=== PATIENT | male | born 1985 | race Caucasian/White ===

== ENCOUNTER 2017-04-28 11:48 | Emergency (ER) | payer OTHER ==
[~2017-04-28] VITALS: Ht 188 cm; Wt 70.0 kg
[~2017-04-28 11:48] MED LIST: DICL50TA PO; ROBA750T PO
[2017-04-28 11:52] VITALS: BP 128/93; PULSE 158; RESP 22; TEMP 97.4; O2SAT 100
[2017-04-28] MEDS ORDERED: LORazepam 2 MG/ML VIAL IV PUSH ONE (12:15)
[2017-04-28] MEDS ORDERED: SODIUM CHLORIDE 0.9% FLUSH 10 ML FLUSH IVF PRN (12:15)
[2017-04-28] MEDS ORDERED: SODIUM CHLOR 0.9% 1000 ML INJ 1,000 ML IV SCH (12:16)
[2017-04-28] MEDS ORDERED: SODIUM CHLORIDE 0.9% FLUSH 10 ML FLUSH IV FLUSH PRN (12:30)
[2017-04-28] MEDS ORDERED: FAMOTIDINE 20 MG/2 ML VIAL IV PUSH ONE (12:30)
[2017-04-28] MEDS ORDERED: LIDOCAINE VISCOUS 2% SOLN 15 ML UDC PO ONE (12:30)
[2017-04-28] MEDS ORDERED: ALUMINUM/MAGNESIUM/SIMETH 30 ML CUP PO ONE (12:30)
[2017-04-28] MEDS ORDERED: ONDANSETRON HCL 4 MG/2 ML VIAL IVP ONE (12:30)
[2017-04-28 12:35] LABS: AUTOMATED NEUTROPHIL # 5.7 TH/MM3 (1.8-7.7); BASOPHIL # 0.1 TH/MM3 (0-0.2); BASOPHIL % 0.8 % (0.0-2.0); EOSINOPHIL # 0.1 TH/MM3 (0-0.4); EOSINOPHIL % 0.7 % (0.0-4.0); HEMATOCRIT 51.1 % (39.0-51.0); HEMOGLOBIN 18.2 GM/DL (13.0-17.0); LYMPH % 24.6 % (9.0-44.0); MEAN CELL VOLUME 91.3 FL (80.0-100.0); MEAN CORPUSCULAR HEMOGLOBIN 32.6 PG (27.0-34.0); MEAN CORPUSCULAR HGB CONC 35.6 % (32.0-36.0); MEAN PLATELET VOLUME 8.3 FL (7.0-11.0); MONO % 5.5 % (0.0-8.0); MONOCYTE # 0.5 TH/MM3 (0-0.9); NEUT % 68.4 % (16.0-70.0); PLATELET COUNT 267 TH/MM3 (150-450); RED CELL DISTRIBUTION WIDTH 12.7 % (11.6-17.2); WHITE BLOOD COUNT 8.3 TH/MM3 (4.0-11.0)
[2017-04-28 12:54] LABS: ALBUMIN 4.7 GM/DL (3.4-5.0); ALT (GPT) 29 U/L (12-78); AST (GOT) 15 U/L (15-37); BICARBONATE 29.5 MEQ/L (21.0-32.0); BLOOD UREA NITROGEN 15 MG/DL (7-18); CALCIUM 9.3 MG/DL (8.5-10.1); CHLORIDE 104 MEQ/L (98-107); CREATININE 1.03 MG/DL (0.60-1.30); GLOMERULAR FILTRATION RATE 83 ML/MIN (>89); GLUCOSE,RANDOM 96 MG/DL (74-106); SODIUM (NA) 140 MEQ/L (136-145)
[2017-04-28 13:04] LABS: ALKALINE PHOSPHATASE 73 U/L (45-117); TOTAL BILIRUBIN ADULT 0.9 MG/DL (0.2-1.0); TOTAL PROTEIN 8.2 GM/DL (6.4-8.2)
[2017-04-28 13:27] LABS: INTERNATIONAL NORMALIZED RATIO 1.2 RATIO; PROTHROMBIN TIME - PATIENT 11.8 SEC (9.8-11.6)
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
[2017-04-28 14:29] LABS: BILIRUBIN, URINE NEG (NEG); BLOOD, URINE NEG (NEG); GLUCOSE,URINE NEG (NEG); KETONE, URINE 10 mg/dL (NEG); MUCUS URINE FEW /lpf (OCC); NITRITE,URINE NEG (NEG); PH, URINE 6.5 (5.0-8.5); URINE COLOR YELLOW (YELLW/STRAW); URINE LEUKOCYTE ESTERASE NEG (NEG)
[2017-04-28] MEDS ORDERED: OMEP40CA2 PO (16:34)
[2017-04-28] MEDS ORDERED: ZOFR4TAB PO (16:34)
[2017-04-28] MEDS ORDERED: VIST25CA PO (16:34)
--- NOTE | 2017-04-28 16:52 | PD ---
Data Data Last Documented VS Vital Signs Date Time Temp Pulse Resp B/P (MAP) Pulse Ox O2 Delivery O2 Flow Rate FiO2 04/28/17 11:52 97.4 158 22 128/93 (105) 100 Orders Orders Complete Blood Count With Diff (04/28/17 12:08) Comprehensive Metabolic Panel (04/28/17 12:08) Thyroid Stimulating Hormone (04/28/17 12:08) Urinalysis - C+S If Indicated (04/28/17 12:08) Electrocardiogram (04/28/17 12:08) Oximetry (04/28/17 12:08) Iv Access Insert/Monitor (04/28/17 12:08) Ecg Monitoring (04/28/17 12:08) Sodium Chloride 0.9% Flush (Ns Flush) (04/28/17 12:15) Lorazepam Inj (Ativan Inj) (04/28/17 12:15) Drug Screen, Random Urine (04/28/17 12:08) Alcohol (Ethanol) (04/28/17 12:08) Lipase (04/28/17 12:16) Lactic Acid (04/28/17 12:16) Prothrombin Time / Inr (Pt) (04/28/17 12:16) Act Partial Throm Time (Ptt) (04/28/17 12:16) NPO (04/28/17 12:16) Ondansetron Inj (Zofran Inj) (04/28/17 12:30) Sodium Chlor 0.9% 1000 Ml Inj (Ns 1000 M (04/28/17 12:16) Sodium Chloride 0.9% Flush (Ns Flush) (04/28/17 12:30) Famotidine Inj (Pepcid Inj) (04/28/17 12:30) Al-Mag Hy-Si 40-40-4 Mg/Ml Liq (Mag-Al P (04/28/17 12:30) Lidocaine 2% Viscous (Xylocaine 2% Visco (04/28/17 12:30) Holter Monitor Recording (04/28/17 ) Labs Laboratory Tests Test 04/28/17 12:20 04/28/17 13:04 04/28/17 13:57 White Blood Count 8.3 TH/MM3 Red Blood Count 5.60 MIL/MM3 Hemoglobin 18.2 GM/DL Hematocrit 51.1 % Mean Corpuscular Volume 91.3 FL Mean Corpuscular Hemoglobin 32.6 PG Mean Corpuscular Hemoglobin Concent 35.6 % Red Cell Distribution Width 12.7 % Platelet Count 267 TH/MM3 Mean Platelet Volume 8.3 FL Neutrophils (%) (Auto) 68.4 % Lymphocytes (%) (Auto) 24.6 % Monocytes (%) (Auto) 5.5 % Eosinophils (%) (Auto) 0.7 % Basophils (%) (Auto) 0.8 % Neutrophils # (Auto) 5.7 TH/MM3 Lymphocytes # (Auto) 2.0 TH/MM3 Monocytes # (Auto) 0.5 TH/MM3 Eosinophils # (Auto) 0.1 TH/MM3 Basophils # (Auto) 0.1 TH/MM3 CBC Comment AUTO DIFF Differential Comment AUTO DIFF CONFIRMED Platelet Estimate NORMAL Platelet Morphology Comment NORMAL Blood Urea Nitrogen 15 MG/DL Creatinine 1.03 MG/DL Random Glucose 96 MG/DL Total Protein 8.2 GM/DL Albumin 4.7 GM/DL Calcium Level 9.3 MG/DL Alkaline Phosphatase 73 U/L Aspartate Amino Transf (AST/SGOT) 15 U/L Alanine Aminotransferase (ALT/SGPT) 29 U/L Total Bilirubin 0.9 MG/DL Sodium Level 140 MEQ/L Potassium Level 3.8 MEQ/L Chloride Level 104 MEQ/L Carbon Dioxide Level 29.5 MEQ/L Anion Gap 7 MEQ/L Estimat Glomerular Filtration Rate 83 ML/MIN Thyroid Stimulating Hormone 3rd Gen 0.672 uIU/ML Ethyl Alcohol Level LESS THAN 3 MG/DL Prothrombin Time 11.8 SEC Prothromb Time International Ratio 1.2 RATIO Activated Partial Thromboplast Time 26.6 SEC Lactic Acid Level 1.3 mmol/L Lipase 83 U/L Urine Color YELLOW Urine Turbidity CLEAR Urine pH 6.5 Urine Specific [place] 1.025 Urine Protein TRACE mg/dL Urine Glucose (UA) NEG mg/dL Urine Ketones 10 mg/dL Urine Occult Blood NEG Urine Nitrite NEG Urine Bilirubin NEG Urine Urobilinogen LESS THAN 2.0 MG/DL Urine Leukocyte Esterase NEG Urine RBC LESS THAN 1 /hpf Urine WBC 5 /hpf Urine Mucus FEW /lpf Microscopic Urinalysis Comment CULT NOT INDICATED Urine Opiates Screen NEG Urine Barbiturates Screen NEG Urine Amphetamines Screen NEG Urine Benzodiazepines Screen NEG Urine Cocaine Screen NEG Urine Cannabinoids Screen POS MDM Supervised Visit with JANEEN: Yes Narrative Course The history, exam, and medical decision-making in the associated midlevel provider note were completed with my assistance. I reviewed and agree with the findings presented. I attest that I had a [id number] encounter with the patient on the same day, and personally performed and documented my assessment and findings in the medical record. *My assessment and Findings: This is a 32-year-old male who presents to the emergency department with intermittent palpitations that have been going on for months. Here in the emergency department he had a heart rate of 150 out in triage. On his EKG can see a discrete change in heart rate from 100-60 which I think reflects an SVT. He is otherwise very well-appearing. Labs are all reassuring. Patient was placed on a Holter monitor and asked to follow-up with an outpatient social science analyst. Given this is a subacute problem I think it is reasonable for him to be assessed on an outpatient basis. Patient seems very reliable. He was discharged home. Diagnosis Primary Impression: Intermittent palpitations Additional Impression: Anxiety Referrals: Osvaldo Dunham MD call for appointment [facility] Primary Care PO Patient Instructions: General Instructions, Holter Monitoring (ED), Anxiety (ED ) Departure Forms: Tests/Procedures Additional Instruction: Patient is felt to have intermittent SVT, and a Holter monitor is recommended. Holter monitor is ordered. Patient is given Vistaril 25 mg 1 every 6 hours as needed #20. Patient also given omeprazole 40 mg daily #30 for his gastritis issues. Patient given Zofran 4 mg 1 every 6 hours as needed for nausea #20. Patient to follow-up with cardiology regarding Holter monitor and palpitations. Patient is to follow-up with local primary care physician as discussed. Scripts Ondansetron (Zofran) 4 Mg Tab 4 MG PO Q6HR Y for NAUSEA OR VOMITING, #20 TAB 0 Refills Prov: Lizzeth Cervantes MD 04/28/17 Omeprazole (Omeprazole) 40 Mg Cap 40 MG PO DAILY, #30 CAP 0 Refills Prov: Lizzeth Cervantes MD 04/28/17 Hydroxyzine Pamoate (Vistaril) 25 Mg Cap 25 MG PO Q6H Y for AGITATION, #20 CAP 0 Refills Prov: Lizzeth Cervantes MD 04/28/17 Disposition: 01 DISCHARGE HOME Condition: Stable Lizzeth Cervantes MD Apr 28, 2017 16:52
--- NOTE | 2017-04-29 23:07 | EKG ---
Date Performed: 04/28/2017 Time Performed: 12:22:52 PTAGE: 32 years EKG: Sinus tachycardia ABNORMAL RHYTHM ECG NO PREVIOUS TRACING DOCTOR: Viky Renee Interpretating Date/Time 04/29/2017 23:04:46
--- NOTE | 2017-04-30 14:20 | HM ---
Date Performed: 04/28/2017 Time Performed: 16:42:00 HOOKUP DATE: 04/28/17 04:42:00 PM Sun ANALYSIS START TIME: 04/28/2017 4:47:00 PM ANALYSIS END TIME: 04/29/2017 4:51:00 PM PATIENT AGE: 32 PATIENT HEIGHT PATIENT WEIGHT DRUG LIST PATIENT DIAGNOSIS TEST NARRATIVE: The patient's average heart rate was 81 BPM. Heart rates greater than 120 B PM were noted 9% of the time. Heart rates less than 50 BPM were noted 10% of the time. No pauses exceeding 2.0 seconds were noted. 13 ventricular ectopics, which represented < 1% of the total b eat count, were noted. The highest ventricular ectopic frequency occurred from 03:00 PM to 04:00 PM Mon. During this time 4 VE(s) occurred. Ventricular ectopics were observed as 13 isolated beat(s) o nly. No couplets or runs were noted. 3 supraventricular ectopics, which represented < 1% of the total beat count, were noted. The highest supraventricular ectopic frequency occurred from 07:00 PM to 08:00 PM Sun. During this time 3 SVE(s) occurred. No episodes of ST depression (defined as -1 .0 mm or more) were noted in channel 1. No episodes of ST depression (defined as -1.0 mm or more) we re noted in channel 2. No episodes of ST depression (defined as -1.0 mm or more) were noted in chann el 3. TEST INTERPRETATION: The patient was monitored for 24 hours. The minimum heart rate was 39, maxi mum heart rate 143, average heart rate 81. The underlying rhythm is normal sinus. There were occasion al PVCs and rare PACs present. CONCLUSION: Rare PACs, rare PVCs. No evidence of any significant arrr hythmias. Signed by : Fred reece
== END 2017-04-28 17:00 | disposition home or self-care (01) ==
LOC: NEPD 11:48
DX: R00.2 Palpitations (principal); F41.9 Anxiety disorder, unspecified; F12.90 Cannabis use, unspecified, uncomplicated; I47.1 Supraventricular tachycardia; I48.91 Unspecified atrial fibrillation; R00.0 Tachycardia, unspecified; R94.31 Abnormal electrocardiogram [ECG] [EKG]; R11.2 Nausea with vomiting, unspecified; F17.210 Nicotine dependence, cigarettes, uncomplicated
CPT/HCPCS: 80053; 80307; 81001; 83605; 83690; 84443; 85025; 85610; 85730; 93005; 93225; 93226; 96361; 96374; 96375; 99284; J2060; J2405; J7030

== ENCOUNTER 2017-05-22 19:17 | Emergency (ER) | payer OTHER ==
[~2017-05-22] VITALS: Ht 188 cm; Wt 75.0 kg
[~2017-05-22 19:17] MED LIST changes: +OMEP40CA2 PO; +VIST25CA PO; +ZOFR4TAB PO
[2017-05-22 19:26] VITALS: BP 134/80; PULSE 119; RESP 15; TEMP 98.1; O2SAT 97
[2017-05-22] MEDS ORDERED: REME15TA PO (20:05)
== END 2017-05-22 21:55 | disposition left against medical advice (07) ==
LOC: PHEFT 19:17
DX: Z53.21 Procedure and treatment not carried out due to patient leaving prior to being seen by health care provider (principal)
CPT/HCPCS: 99281